=== PATIENT | female | born 1970 | race Caucasian/White ===

== ENCOUNTER 2016-12-26 06:23 | Day surgery (SDC) | payer MEDICAID ==
[~2016-12-26 06:23] MED LIST: EPINEPHrine 1:1000 1 MG/ML SDV ONE; Lidocaine 1%/Sod Bicarbonate in NS 8.4% 1 ML Syringe IV PRN; Ropivacaine 0.5% 5 MG/ML 30 ML SDV ONE; Sodium Chloride 0.9% 10 ML Syringe FLUSH PRN
[2016-12-26] MEDS ORDERED: Rocuronium 50 MG/5 ML Vial ONE (06:26)
[2016-12-26] MEDS ORDERED: Midazolam 1 MG/ML 2 ML SDV ONE (06:26)
[2016-12-26] MEDS ORDERED: fentaNYL 250 MCG/5 ML SDV ONE ×2 (06:26→09:32)
[2016-12-26] MEDS ORDERED: Propofol 200 MG/20 ML SDV ONE ×7 (06:26→09:48)
[2016-12-26] MEDS ORDERED: Lidocaine 1% 4 ML ONE ×2 (06:26)
[2016-12-26] MEDS ORDERED: Ondansetron 4 MG/2 ML SDV ONE (06:26)
[2016-12-26] MEDS ORDERED: Scopolamine 1.5 MG Transdermal Patch TRDERM ONE ×3 (06:42→07:30)
[2016-12-26] MEDS: Lactated Ringers 1,000 ML IV SCH ×2 (06:45→11:05)
--- NOTE | 2016-12-26 06:46 | PCM.PREANE ---
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 Other Musculoskeletal History: ganglion cysts to both wrist, L shoulder pain, L rotator cuff tear, R wrist pain Neurological History: Reports: None Psychiatric History: Reports: Anxiety Endocrine/Metabolic History: Reports: None Hematologic History: Reports: None Immunologic History: Reports: None Oncologic (Cancer) History: Reports: None Dermatologic History: Reports: Other (see below) Other Dermatologic History: facial rash - Past Surgical History Head Surgeries/Procedures: Reports: None HEENT Surgical History: Reports: Tonsillectomy Musculoskeletal Surgical History: Reports: Other (see below) Other Musculoskeletal Surgeries/Procedures:: knee surgery - SUBSTANCE USE Smoking Status *Q: Never Smoker Tobacco Use Within Last Twelve Months: No Second Hand Smoke Exposure: No Recreational Drug Use History: No - HOME MEDS Home Medications: Home Meds FLUoxetine [PROzac] 20 mg PO DAILY 12/25/16 [History] Naproxen 500 mg PO Q12H PRN 12/25/16 [History] Cyclobenzaprine [Flexeril] 10 mg PO Q8H PRN #40 tablet 12/26/16 [Rx] Hydrocodone/Acetaminophen [[place] 5-325 Tablet] 1 - 2 each PO Q6H PRN #40 tablet 12/26/16 [Rx] - CURRENT (IN HOUSE) MEDS Current Meds: Current Medications Lactated Ringer's (Ringers, Lactated) 1,000 mls @ 125 mls/hr IV ASDIRECTED KINGSLEY Stop: 12/26/16 23:00 Lidocaine/Sodium Bicarbonate (Buffered Lidocaine 1% In Ns 8.4%) 0.25 ml IV ONETIME PRN PRN Reason: Prior to IV Start Stop: 12/26/16 18:00 Miscellaneous Information (Remove Patch) 1 ea TRDERM Q72H KINGSLEY Stop: 12/29/16 06:01 Scopolamine (Transderm-Scop) 1.5 mg TRDERM ONETIME ONE Stop: 12/26/16 07:31 Sodium Chloride (Saline Flush) 10 ml FLUSH ASDIRECTED PRN PRN Reason: Keep Vein Open Stop: 12/26/16 18:00 Discontinued Medications Epinephrine HCl (Adrenalin 1:1000) Confirm Administered Dose 1 mg .ROUTE .STK- MED ONE Stop: 12/26/16 06:22 Fentanyl (Sublimaze) Confirm Administered Dose 250 mcg .ROUTE .STK-MED ONE Stop: 12/26/16 06:27 Lidocaine HCl (Xylocaine-Mpf 1%) Confirm Administered Dose 4 mls @ as directed .ROUTE .STK-MED ONE Stop: 12/26/16 06:27 Lidocaine HCl (Xylocaine-Mpf 1%) Confirm Administered Dose 4 mls @ as directed .ROUTE .STK-MED ONE Stop: 12/26/16 06:27 Midazolam HCl (Versed 1 Mg/Ml) Confirm Administered Dose 2 mg .ROUTE .STK-MED ONE Stop: 12/26/16 06:27 Ondansetron HCl (Zofran) Confirm Administered Dose 4 mg .ROUTE .STK-MED ONE Stop: 12/26/16 06:27 Propofol (Diprivan 20 Ml) Confirm Administered Dose 200 mg .ROUTE .STK-MED ONE Stop: 12/26/16 06:27 Rocuronium [place] (Zemuron) Confirm Administered Dose 50 mg .ROUTE .STK-MED ONE Stop: 12/26/16 06:27 Ropivacaine (Naropin 0.5%) Confirm Administered Dose 30 ml .ROUTE .STK-MED ONE Stop: 12/26/16 06:22 Preanesthetic Assessment - ANESTHESIA/TRANSFUSION/FAMILY HX Anesthesia/Transfusion History: No Prior Transfusion(s), Prior Anesthesia ( nausea ) Family History of Anesthesia Reaction: No - REVIEW OF SYSTEMS Constitutional: Reports: no symptoms 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 Respiratory: Reports: no symptoms Cardiovascular: Reports: no symptoms GI: Reports: no symptoms Other: Reports: None, Anxiety - PHYSICAL ASSESSMENT HR: 82 O2 Sat by Pulse Oximetry: 97 RR: 16 BP: 127/85 Temp: 98.2 F Height: 5 ft 1 in Weight: 67.857 kg NPO Status Date: 12/25/16 NPO Status Time: 23:45 ASA Class: 2 Mental Status: Alert & Oriented x3 Airway Class: Mallampati = 1 Dentition: Reports: Normal Dentition Thyro-Mental Finger Breadths: 3 Mouth Opening Finger Breadths: 3 ROM/Head Extension: Full Respiratory Status: lungs clear to auscultation bilaterally Cardiovascular Status: regular rate & rhythm, normal S1, S2, no murmur, blood pressure WNL - LAB Values: Laboratory Last Values MRSA (PCR) Negative 12/20/16 10:10 12/04/16 HGB 13.7 PLT 304 Lytes WNL BUN 21 Cr 0.8 - IMAGING/EKG Impressions: EKG SR HR 70 12/04/16 CXR 12/04/16 snall left lower lung nodule--nothing acute - ALLERGIES Allergies/Adverse Reactions: Allergies Allergy/AdvReac Type Severity Reaction Status Date / Time No Known Allergies Allergy Verified 12/25/16 16:14 - BLOOD Blood Available: No - ANESTHESIA PLAN Preop Beta Dolores: No Anesthesia Type Planned: General Anesthesia - ACKNOWLEDGEMENTS Pt an Appropriate Candidate for the Planned Anesthesia: Yes Alternatives and Risks of Anesthesia Discussed w Pt/Guardian: Yes Pt/Guardian Understands and Agrees with Anesthesia Plan: Yes
[2016-12-26] MEDS ORDERED: ceFAZolin 1 GM Vial ONE (07:10)
[2016-12-26] MEDS ORDERED: EPINEPHrine 1:1000 1 MG/ML 30 ML MDV ONE (07:23)
[2016-12-26] MEDS ORDERED: Dexamethasone 4 MG/ML SDV ONE (08:15)
[2016-12-26] MEDS ORDERED: Ondansetron 4 MG/2 ML SDV IVPUSH PRN (08:17)
[2016-12-26] MEDS ORDERED: Meperidine PF 50 MG/ML Syringe IVPUSH PRN (08:17)
[2016-12-26] MEDS ORDERED: fentaNYL 100 MCG/2 ML SDV IVPUSH PRN (08:17)
[2016-12-26] MEDS ORDERED: Lactated Ringers 1,000 ML ONE (08:41)
[2016-12-26] MEDS ORDERED: fentaNYL 100 MCG/2 ML SDV ONE (08:50)
[2016-12-26] MEDS ORDERED: Labetalol 100 MG/20 ML MDV ONE (08:57)
[2016-12-26] MEDS: Bupivacaine 0.25% 30 ML SDV ONE ×2 (09:07→10:10)
--- NOTE | 2016-12-26 10:39 | PCM.POSTAN ---
POST ANESTHESIA ASSESSMENT - MENTAL STATUS Mental Status: somnolent - VITAL SIGNS Pulse Rate: 80 SaO2: 96 Resp Rate: 11 Blood Pressure: 127/90 Temperature: 97 F - RESPIRATORY Respiratory Status: respiratory rate WNL, airway patent, O2 saturation stable, supplemental oxygen - CARDIOVASCULAR CV Status: pulse rate WNL, blood pressure stable - GASTROINTESTINAL GI Status: no symptoms - PAIN Pain Score: 0 - POST OP HYDRATION Hydration Status: adequate & stable
[2016-12-26 13:24] VITALS: BP 112/76
--- NOTE | 2016-12-26 13:55 | PCM48HPAN ---
Post Anesthesia Note - EVALUATION WITHIN 48HRS OF ANESTHETIC Vital Signs in Normal Range: Yes Patient Participated in Evaluation: Yes Respiratory Function Stable: Yes Airway Patent: Yes Cardiovascular Function Stable: Yes Hydration Status Stable: Yes Pain Control Satisfactory: Yes (no pain) Nausea and Vomiting Control Satisfactory: Yes (denies nausea, scope patch still intact) Mental Status Recovered: Yes
== END 2016-12-26 13:20 | disposition home or self-care (01) ==
LOC: JD.SDS 06:23
PROVIDERS: ATTEND Orthopaedic Surgery
DX: M75.102 Unspecified rotator cuff tear or rupture of left shoulder, not specified as traumatic (principal); M75.22 Bicipital tendinitis, left shoulder; F41.9 Anxiety disorder, unspecified; Z79.899 Other long term (current) drug therapy; Z98.890 Other specified postprocedural states
CPT/HCPCS: 29826; 29828; 81025; 87641; A9270; C1713; J0171; J0690; J1100; J2250; J2405; J2795; J3010; J7120; 01630; 64415; J2704; J3490

== ENCOUNTER 2020-04-27 14:24 | Emergency (ER) | payer MEDICAID ==
[2020-04-27 14:49] VITALS: BP 177/118; PULSE 90
[2020-04-27] MEDS ORDERED: LORazepam 0.5 MG Tab PO ONE (15:07)
--- NOTE | 2020-04-27 15:48 | CT ---
CT cervical spine Technique: Multiple axial sections were obtained from above C1 inferiorly to the bottom of T2. Reconstructed sagittal and coronal images were obtained. Findings: Mild disc space narrowing at C5-6. Slight posterior spurring is seen at C5-6. Mild spurring noted within the uncovertebral joints at C5-6. Mild degenerative change is noted between the dens and anterior arch of C1. Minimal left-sided neural foraminal stenosis is seen at C5-6. Other neural foramina are patent. No central canal stenosis is seen. No acute fracture or subluxation is seen. Impression: 1. Mild degenerative change. 2. Nothing acute is appreciated. Diagnostic code #3 This report was dictated in MDT
--- NOTE | 2020-04-27 16:07 | US ---
Right upper extremity deep venous ultrasound: Duplex and color Doppler evaluation was obtained of the right internal, subclavian, axillary, brachial, basilic, radial and ulnar veins. Left internal jugular vein is also evaluated. Findings: Narrowing of a portion of the subclavian vein is seen. Uncertain if this represents acute incompletely occluding clot or represents an area of hypoechoic fibrosis from old disease. Veins proximal and distal to this area show no evidence of acute thrombosis. Impression: 1. Narrowing of a portion of the subclavian vein as described above. 2. Right upper extremity venous ultrasound is otherwise unremarkable. Diagnostic code #3 This report was dictated in MDT
--- NOTE | 2020-04-27 16:14 | EDM.PDOC ---
ED HPI GENERAL MEDICAL PROBLEM - General Chief Complaint: Neck Problem Stated Complaint: NECK PAIN Time Seen by Provider: 04/27/20 14:33 Source of Information: Reports: Patient, Old Records, RN Notes Reviewed History Limitations: Reports: No Limitations - History of Present Illness INITIAL COMMENTS - FREE TEXT/NARRATIVE: Patient is a 49-year-old female who presents to the ED for evaluation of her neck and upper arm pain. Patient notes she has been having ongoing medical issues for quite some time, and is been doctoring with Cammy Conde in the clinic, she is not been able to get a lot of answers and has had multiple amounts of blood work done. She states however she is more worried today for some neck pain that developed yesterday, and some pain that radiates into her right arm with swelling. She states that the neck pain, felt like a lightening bolt in her neck and down her arm. She did take 1000 g of Tylenol for this, and leftover hydrocodone, and states that the hydrocodone seem to help her pain. Patient notes that the pain was worse when she stood upright, with pressure on the bones per se. Patient notes that she is not had any sort of imaging done on her neck. She also complains of some low-grade fevers that have been ongoing, a little bit of nausea. Patient states she does have Ativan at home, for when she feels stressed, but does not think that she has had any increased stress or anxiety in her life. She does state that she has been having issues for the last 2-1/2 to 3 months. 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) Other Treatments MACHINE HEEL BUILDER: none Knee Pain Score (Numeric/FACES): 0 Neck Pain Score (Numeric/FACES): 4 - Related Data Allergies Allergy/AdvReac Type Severity Reaction Status Date / Time amoxicillin Allergy Severe Rash Verified 04/27/20 14:42 doxycycline Allergy Severe Rash Verified 04/27/20 14:42 Home Meds: Home Meds FLUoxetine [PROzac] 20 mg PO DAILY 12/25/16 [History] Hydrocodone/Acetaminophen [[place] 5-325 Tablet] 1 - 2 each PO Q6H PRN #40 tablet 12/26/16 [Rx] Fluconazole [Diflucan] 150 mg PO ONETIME 04/27/20 [History] Vancomycin 1 cap PO QID 04/27/20 [History] metroNIDAZOLE [Flagyl] 1 tab PO TID 04/27/20 [History] predniSONE 20 mg PO ASDIRECTED #15 tab 04/27/20 [Rx] Past Medical History Musculoskeletal History: Reports: Other (See Below) Other Musculoskeletal History: ganglion cysts to both wrist, L shoulder pain, L rotator cuff tear, R wrist pain Psychiatric History: Reports: Anxiety Dermatologic History: Reports: Other (See Below) Other Dermatologic History: facial rash Social & Family History - Caffeine Use Caffeine Use: Reports: None ED ROS GENERAL - Review of Systems Review Of Systems: Comprehensive ROS is negative, except as noted in HPI. ED EXAM, UPPER BACK/NECK PAIN - Physical Exam Exam: See Below Exam Limited By: No Limitations General Appearance: Alert, WD/WN, No Apparent Distress, Anxious Ears Exam: Normal External Exam, Normal Canal, Hearing Grossly Normal, Normal TMs, TM Fluid (serous fluid behind both TMs) Head Exam: Atraumatic Neck Exam: Full Range of Motion, Normal Alignment, Normal Inspection, Muscle Spasm (Muscular tenderness to posterior neck over the c5/c6 distribution), Tenderness (over c5/c6 distribution) Nexus Criteria: No: Posterior, Midline Cervical Tenderness, Evidence of Intoxication, Altered Level of Consciousness, Focal Neurological Deficit, Painful Distraction Injuries Cardiovascular/Respiratory: Regular Rate, Rhythm, No M/R/G, Normal Peripheral Pulses, No JVD, Normal Breath Sounds, No Respiratory Distress GI/Abdominal: Normal Bowel Sounds, Soft Extremities: Normal Range of Motion, Non-Tender, Normal Capillary Refill, Other (1+ arm swelling to the right inner forearm as compared to the left.) Neurologic: No Motor/Sensory Deficits, Alert, Normal Mood/Affect, Oriented x 3 Psychiatric: Normal Affect, Normal Mood, Anxious (pt talks very briskly.) Skin Exam: Normal Color, Warm/Dry Course - Vital Signs Last Recorded V/S: Last Vital Signs Temp 99.1 F 04/27/20 14:48 Pulse 90 04/27/20 14:48 Resp 20 04/27/20 14:48 BP 177/118 H 04/27/20 14:48 Pulse Ox 99 04/27/20 14:48 - Orders/Labs/Meds Meds: Medications Discontinued Medications Generic Name Dose Route Start Last Admin Trade Name Freq PRN Reason Stop Dose Admin Lorazepam 1 mg 04/27/20 15:07 04/27/20 15:33 Ativan PO 04/27/20 15:08 Not Given ONETIME ONE - Re-Assessments/Exams Free Text/Narrative Re-Assessment/Exam: 04/27/20 16:16 Patient presents to the ED for evaluation of her neck pain and right upper arm pain and swelling. 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 The neck CT done today, demonstrates mild degenerative change that found mild disc space narrowing at C5-C6 with slight posterior spurring seen at the C5-C6. There is minimal left-sided neural foraminal stenosis seen at C5-C6. The ultrasound of the right upper extremity demonstrates narrowing of a portion of the subclavian vein is seen. Uncertain if this represents acute incompletely occluding clot or represents an area of a hypoechoic fibrosis from old disease veins proximal and distal to this area show no evidence of acute thrombosis. Consult with our radiologist, and he said that it would be the possibility of an outlet obstruction, and that thoracic outlet syndrome could be within the differential. I did discuss these findings with the patient, and she states she will follow-up with her primary care provider for further management. Departure - Departure Time of Disposition: 16:36 Disposition: Home, Self-Care 01 Condition: Good Clinical Impression: Neck pain, Swelling of right upper extremity - Discharge Information *PRESCRIPTION DRUG MONITORING PROGRAM REVIEWED*: No *COPY OF PRESCRIPTION DRUG MONITORING REPORT IN PATIENT PENNIE: No Instructions: Radicular Pain Referrals: Tri Mirza PA-C [Primary Care Provider] - Forms: ED Department Discharge Additional Instructions: You were evaluated in the ER today regarding your neck pain and right arm pain/swelling. You had a neck CT done, this demonstrated some degenerative changes, and disc space narrowing at C5-C6. Your arm ultrasound demonstrates an area of possible narrowing of the subclavian vein on the right side. This could be due to thoracic outlet syndrome. Recommend you get a cardiovascular consult for further evaluation and management. You may talk about this with your primary care provider, Cammy Mirza at your next scheduled appointment. You were given a course of prednisone for the neck pain, please take as prescribed. You may use your at home Ativan, for muscle relaxer effect. I would recommend you take at least 1 mg up to 3 times a day for further muscle stiffness/pain. Please return to the ER at any time if your symptoms change or worsen. Sepsis Event Note (ED) - Evaluation Sepsis Screening Result: No Definite Risk - Focused Exam Vital Signs: Vital Signs Temp Pulse Resp BP Pulse Ox 04/27/20 14:48 99.1 F 90 20 177/118 H 99
== END 2020-04-27 17:25 | disposition home or self-care (01) ==
LOC: JD.ED 14:24
DX: M54.2 Cervicalgia (principal); R22.31 Localized swelling, mass and lump, right upper limb; F41.9 Anxiety disorder, unspecified; Z91.09 Other allergy status, other than to drugs and biological substances; Z88.1 Allergy status to other antibiotic agents; Z79.899 Other long term (current) drug therapy
CPT/HCPCS: 72125; 72125-26; 93971-26-RT; 93971-RT; 99283; 99283-25

== ENCOUNTER 2022-07-17 06:32 | Day surgery (SDC) | payer BC, MEDICAID ==
[~2022-07-17 06:32] MED LIST changes: +Acetaminophen 325 MG Tab PO SCH; -EPINEPHrine 1:1000 1 MG/ML SDV ONE; +Lactated Ringers 1,000 ML IV SCH; +Lidocaine 1%/Sod Bicarbonate in NS 8.4% 1 ML Syringe IDERM PRN; -Lidocaine 1%/Sod Bicarbonate in NS 8.4% 1 ML Syringe IV PRN; +Pregabalin 25 MG Cap PO SCH; -Ropivacaine 0.5% 5 MG/ML 30 ML SDV ONE; +Sodium Chloride 0.9% 10 ML Syringe FLUSH SCH; +oxyCODONE ER 10 MG TAB.ER PO SCH
[2022-07-17] MEDS ORDERED: Vancomycin 1 GM SDV ONE ×2 (06:56→07:10)
[2022-07-17] MEDS ORDERED: Propofol 200 MG/20 ML SDV ONE (08:02)
[2022-07-17] MEDS ORDERED: Midazolam 1 MG/ML 2 ML SDV ONE (08:02)
[2022-07-17] MEDS ORDERED: Lidocaine 1% 4 ML ONE (08:03)
[2022-07-17] MEDS ORDERED: EPINEPHrine 1 MG/ML SDV ONE (08:09)
[2022-07-17] MEDS ORDERED: Ropivacaine 0.5% 5 MG/ML 30 ML SDV ONE (08:09)
[2022-07-17] MEDS ORDERED: fentaNYL 100 MCG/2 ML SDV ONE (08:40)
[2022-07-17] MEDS ORDERED: ceFAZolin 2 GM Vial ONE (08:40)
[2022-07-17] MEDS ORDERED: Morphine 8 MG, EPINEPHrine 0.3 MG, Cefuroxime 750 MG, Ketorolac 30 MG, Sodium Chloride ... PRN ×5 (08:52)
[2022-07-17] MEDS ORDERED: Ondansetron 4 MG/2 ML SDV IVPUSH PRN (08:58)
[2022-07-17] MEDS ORDERED: HYDROmorphone 0.5 MG/0.5 ML Syringe IVPUSH PRN (08:58)
[2022-07-17] MEDS ORDERED: fentaNYL 100 MCG/2 ML SDV IVPUSH PRN (08:58)
[2022-07-17] MEDS ORDERED: Cyclobenzaprine 10 MG Tab PO PRN (09:00)
[2022-07-17] MEDS ORDERED: oxyCODONE 5 MG Tab PO PRN (09:00)
[2022-07-17] MEDS ORDERED: Lactated Ringers 1,000 ML ONE ×2 (09:17→10:08)
[2022-07-17] MEDS ORDERED: Dexamethasone 4 MG/ML 5 ML MDV ONE (09:23)
[2022-07-17 14:45] VITALS: BP 120/83; PULSE 76
== END 2022-07-17 13:55 | disposition home or self-care (01) ==
LOC: JD.SDS 06:32
PROVIDERS: ATTEND Orthopaedic Surgery
DX: M17.12 Unilateral primary osteoarthritis, left knee (principal); G43.909 Migraine, unspecified, not intractable, without status migrainosus; F41.9 Anxiety disorder, unspecified; Z88.1 Allergy status to other antibiotic agents; Z79.899 Other long term (current) drug therapy
CPT/HCPCS: 0055T; 27447; 73560; 97110; 97116; 97161; A9270; C1713; C1776; J0171; J0690; J0697; J1100; J1885; J2250; J2270; J2704; J2795; J3370; J7120; 01402; 64450; 76942; J3010